=== PATIENT | male | born 2000 ===

== ENCOUNTER 2021-12-05 22:01 | Emergency (ER) | payer SELFPAY ==
[~2021-12-05] VITALS: Ht 175.3 cm; Wt 90.9 kg
[2021-12-05 22:11] VITALS: TEMP 98.7
[2021-12-06 00:17] VITALS: BP 109/79; PULSE 89
== END 2021-12-06 00:17 | disposition home or self-care (01) ==
LOC: COL.ER 22:01
DX: L50.9 Urticaria, unspecified (principal)
CPT/HCPCS: J2930